=== PATIENT | male | born 1985 | race Caucasian/White ===

== ENCOUNTER 2016-10-11 22:23 | Emergency (ER) | payer BC ==
[2016-10-11] MEDS ORDERED: SULFAMETHOXAZOLE/TRIMETHOPRIM 800MG/160MG D.S. TABLET PO ONE (22:36)
--- NOTE | 2016-10-11 22:36 | PDOC ---
[id number] 4d RIGHT ELBOW PAIN Time Seen by Provider: 10/11/16 22:32 History Source: Patient Exam Limitations: No Limitations - History of Present Illness Initial Comments: 10/11/16 23:20 This is a 31-year-old male comes in complaining of right elbow pain 1 day. Patient denies any fever, chills, trauma or injury. Patient denies any frequent use of the elbow. Patient says he does sit at a desk at a computer and leans his elbow on the chair a fair amount. Patient otherwise is healthy and denies similar symptoms in the past. PAST MEDICAL HISTORY: no significant history PAST SURGICAL HISTORY: no significant history FAMILY HISTORY: no pertinant history SOCIAL HISTORY: Pt lives with family and is employed. MEDICATIONS: reviewed ALLERGIES: As per nursing notes Review of Systems General: No fevers or chills, no weakness, no weight loss HEENT: No change in vision. No sore throat,. No ear pain CardioVascular: No chest pain or shortness of breath Respiratory:No cough, or wheezing. Gastrointestinal: no nausea, vomitting, diarrhea or constipation, No rectal bleeding Genitourinary: No dysuria, hematuria, or frequency Musculoskeletal: Right elbow pain and swelling Neurologic: No headache, vertigo, dizziness or loss of consciousness Psychiatric: nor depression Skin: No rashes or easy bruising Endocrine: no increased thirst or abnormal weight change Allergic: no skin or latex allergy All other systems reviewed and normal GENERAL: The patient is awake, alert, and fully oriented, in no acute distress. HEAD: Normal with no signs of trauma. EYES: Pupils equal, round and reactive to light, extraocular movements intact, sclera anicteric, conjunctiva clear. EXTREMITIES: Right elbow there is a small collection over the olecranon with some mild erythema and slight increase in warmth. There does appear to be an abrasion over the area as well. There is full range of motion at the elbow with minimal discomfort. Neurovascular distal is intact. NEUROLOGICAL: Normal speech, normal gait. PSYCH: Normal mood, normal affect. SKIN: Warm, Dry, normal turgor, no rashes or lesions noted. This is a 31-year-old male who comes in with an right olecranon bursitis. It is uncertain as to whether or not there is also an overlying mild cellulitis. Patient started on Bactrim to cover for MRSA as well as other skin floor and given a follow-up with Dr. Arshad. Past History - Past Medical History Allergies/Adverse Reactions: Allergies Allergy/AdvReac Type Severity Reaction Status Date / Time Penicillins Allergy Verified 10/11/16 22:36 shellfish derived Allergy Verified 10/11/16 22:36 Home Medications: Ambulatory Orders Sulfamethoxazole/Trimethoprim [Bactrim DS -] 1 tab PO BID #14 tablet 10/11/16 *DC/Admit/Observation/Transfer Diagnosis at time of Disposition: Olecranon bursitis, right elbow - Discharge Dispostion Disposition: HOME Condition at time of disposition: Stable - Prescriptions Prescriptions: Sulfamethoxazole/Trimethoprim [Bactrim DS -] 1 tab PO BID #14 tablet - Patient Instructions Printed Discharge Instructions: Bursitis Additional Instructions: For the pain take ibuprofen 600 mg 3 times a day with food don't take on an empty stomach.. Take Bactrim 1 tablet twice a day for 7 days. Follow-up with an orthopedist if you need an orthopedist call Dr. Arshad at [phone] in the morning for an appointment. Return to the emergency department immediately with ANY new, persistent or worsening symptoms. Continue any medications as previously prescribed by your physician. You should follow up with your primary doctor as soon as possible regarding today's emergency department visit. . Please make sure your doctor reviews the results of your emergency evaluation. Thank you for coming to the Emergency Department today for your care. It was a pleasure to see you today. Please note that your evaluation is INCOMPLETE until you follow-up with your doctor.
[2016-10-11] MEDS ORDERED: IBUPROFEN 600 MG TABLET (FP) PO ONE ×2 (22:39→22:43)
[2016-10-11 22:41] VITALS: BP 119/81; PULSE 60; TEMP 98.1; BMI 24.3
== END 2016-10-11 22:45 | disposition home or self-care (01) ==
LOC: FER 22:23
DX: M70.21 Olecranon bursitis, right elbow (principal)
CPT/HCPCS: 99281-25

== ENCOUNTER 2016-10-14 09:36 | Inpatient (IN) | payer BC ==
--- NOTE | 2016-10-14 09:45 | PDOC ---
History of Present Illness - General Chief Complaint: Wound Stated Complaint: RIGHT ELBOW CELLULITIS Time Seen by Provider: 10/14/16 09:40 History Source: Patient (Patient, second visit to this ER for same was brought in by Dr Arshad for spreading of his redness over the right elbow. Patient was treated as outpatient with Bactrim DS without improvement) Exam Limitations: No Limitations - History of Present Illness Severity: moderate Past History - Travel Traveled outside of the country in the last 30 days: No Close contact w/someone who was outside of country & ill: No - Past Medical History Allergies/Adverse Reactions: Allergies Allergy/AdvReac Type Severity Reaction Status Date / Time Penicillins Allergy Verified 10/14/16 09:38 shellfish derived Allergy Verified 10/14/16 09:38 Home Medications: Ambulatory Orders Sulfamethoxazole/Trimethoprim [Bactrim DS -] 1 tab PO BID #14 tablet 10/11/16 - Psycho/Social/Smoking Cessation Hx Anxiety: No Suicidal Ideation: No Smoking History: Never smoked Have you smoked in the past 12 months: No Hx Alcohol Use: No Drug/Substance Use Hx: No Substance Use Type: None Review of Systems - Review of Systems Able to Perform ROS?: Yes Is the patient limited Maltese proficient: Yes Constitutional: Yes: Symptoms Reported, Fever, Malaise HEENTM: Yes: Symptoms Reported, See HPI Respiratory: No: Symptoms reported, See HPI, Cough, Orthopnea, Shortness of Breath, SOB with Exertion, SOB at Rest, Stridor, Wheezing, Productive cough, Hemoptysis, Other Cardiac (ROS): No: Symptoms Reported, See HPI, Chest Pain, Edema, Irregular Heart Rate, Lightheadedness, Palpitations, Syncope, Chest Tightness, Other ABD/GI: Yes: Nausea Musculoskeletal: Yes: Symptoms Reported, See HPI Integumentary: Yes: Symptoms Reported, See HPI, Erythema, Flushing, Rash Neurological: No: Symptoms reported, See HPI, Headache, Numbness, Paresthesia, Pre-Existing Deficit, Seizure, Tingling, Tremors, Weakness, Unsteady Gait, Ataxia, Dizziness, Other Psychiatric: No: Anxiety, Depression, Frequent Crying, Stressors, Sleep Pattern Change, Emotional Problems, Mood Swings, Change in Appetite, Other Endocrine: No: Symptoms Reported, See HPI, Excessive Sweating, Flushing, Intolerance to Cold, Intolerance to Heat, Increased Hunger, Increased Thirst, Increased Urine, Unexplained Weight Gain, Unexplained Weight Loss, Change in Weight, Other All Other Systems: Reviewed and Negative *Physical Exam - Physical Exam General Appearance: Yes: Nourished, Appropriately Dressed, Moderate Distress, Thin HEENT: positive: Normal ENT Inspection Neck: positive: Supple Respiratory/Chest: positive: Lungs Clear, Normal Breath Sounds Cardiovascular: positive: Regular Rate Extremity: positive: Normal Capillary Refill Integumentary: positive: Normal Color, Dry, Erythema 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 Blood work done, iv started .Antibiotics as ordered gera timely fashion Patint to be admitted as an inpatient, iv atbc ordered 10/14/16 17:55 *DC/Admit/Observation/Transfer Diagnosis at time of Disposition: Cellulitis Qualifiers: Site of cellulitis: extremity Site of cellulitis of extremity: upper extremity Laterality: right Qualified Code(s): L03.113 - Cellulitis of right upper limb - Discharge Dispostion Condition at time of disposition: Stable Admit: Yes
[2016-10-14 09:51] VITALS: BMI 24.3
[2016-10-14] MEDS ORDERED: OXYCODONE/APAP 5/325MG COMBO TABLET ONE (10:07)
[2016-10-14] MEDS ORDERED: OXYCODONE/APAP 5/325MG COMBO TABLET PO ONE (10:26)
[2016-10-14 10:31] LABS: INR 1.17 (0.82-1.09); PROTHROMBIN TIME (PATIENT) 12.8 SEC (10.2-13.0)
[2016-10-14 10:36] LABS: ALBUMIN 4.7 g/dl (3.5-5.0); ALK PHOS 51 U/L (32-92); ANION GAP 9 (8-16); BILIRUBIN,TOTAL 0.8 mg/dl (0.2-1.0); CALCIUM 9.4 mg/dl (8.4-10.2); CO2 25 mmol/L (22-28); CREATININE 0.9 mg/dl (0.6-1.3); GLUCOSE,RANDOM 93 mg/dl (74-106); SGOT/AST 23 U/L (10-42); SGPT/ALT 28 U/L (10-40); TOT PROT 7.7 g/dl (6.4-8.3)
[2016-10-14 11:06] LABS: BASOPHIL 0.3 % (0-2.0); EOSINOPHIL 1.4 % (0-4.5); MCH 29.5 pg (25.7-33.7); MCHC 32.8 g/dl (32.0-35.9); MEAN CELL VOLUME 89.9 fl (80-96); MEAN PLT VOLUME 9.6 fl (7.5-11.1); NEUTROPHILS 67.7 % (42.8-82.8); PLATELET COUNT 238 K/MM3 (134-434); RDW 12.4 % (11.9-15.9); WHITE BLOOD COUNT 9.7 K/mm3 (4.0-10.0)
--- NOTE | 2016-10-14 11:08 | PN ---
Progress Note (short form) - Note Progress Note: ID Consult dictated Cellulitis R elbow Possible infected R olecrannon bursa PCN allergy Await blood c/s Empiric vancomycin 1gm IVPB Q12h Elevation, warm soaks, analgesics
[2016-10-14] MEDS ORDERED: VANCOMYCIN 1,000 MG VIAL (RESTRICTED TO ID ONLY) ONE (11:18)
[2016-10-14] MEDS: VANCOMYCIN 1 GRAM (PRE-DOCKED) 250 ML IVPB SCH ×2 (11:28→23:00)
--- NOTE | 2016-10-14 11:51 | CONS ---
DATE OF CONSULTATION: HISTORY: The patient is a 31-year-old male who was evaluated for cellulitis of the right elbow. He had presented to the emergency room on October 11, 2015 with a 1-day history of right elbow pain. He was found to have erythema involving the elbow area. He was discharged home to complete a course of oral Bactrim. Despite taking the Bactrim as prescribed, he developed worsening erythema, warmth, and swelling of the right elbow area. He returned to the emergency room where he is now being admitted. He denies any traumatic injury to the right elbow. No insect or animal bites or scratches. He denies any associated fever or chills. No prior history of serious soft tissue infection requiring hospitalization or history of MRSA. PAST MEDICAL HISTORY: Negative. ALLERGIES: PENICILLIN and SHELLFISH. The patient is unaware of the nature of the PENICILLIN allergy. He was told as a child he was allergic to PENICILLIN and no documented history of anaphylaxis. MEDICATIONS: Include oxycodone for pain and Bactrim. 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 No direct patient contact. Nonsmoker, nondrinker. Had recently relocated from [facility]. REVIEW OF SYSTEMS: Neurologic: No loss of consciousness, seizure activity, focal weakness. Cardiac: Negative chest pain or palpitations. Respiratory: Negative cough or sputum production. Gastrointestinal: Negative vomiting or diarrhea. Genitourinary: Negative for urinary tract infection. LABORATORY DATA: CBC pending. BUN 14, creatinine 0.9. Blood cultures are pending. PHYSICAL EXAMINATION: General: He is awake and alert in no acute distress. Vital Signs: Temperature 97.8, blood pressure 117/76, pulse 66, regular, respirations 18 per minute. HEENT: Sclerae anicteric. Heart: Sound S1, S2. No murmur. Lungs: Clear. No rales, rhonchi, or wheezing. Abdomen: Soft. No tenderness elicited. No mass, rebound, or rigidity. Extremities: Negative for pedal edema. Examination of the right elbow, there is an area of erythema involving the elbow area, which extends several cm proximally and distally. It is limited to the extensor aspect of the right upper extremity. There is slight swelling over the olecranon bursa and tenderness. There is no fluctuance. IMPRESSION: 1. Cellulitis of the right elbow. 2. Possible infected right olecranon bursa. 3. PENICILLIN allergy. PLAN: Await blood culture results. Empiric antibiotic coverage in this PENICILLIN-allergic patient with vancomycin 1 g IV piggyback every 12 hours. Warm soaks. Elevation. Analgesics as needed. Orthopaedic follow up. We will follow. Thank you for the kind referral. LUC LEHMAN M.D. JUNIOR/[id number]
--- NOTE | 2016-10-14 12:36 | HP ---
CHIEF COMPLAINT: pain to right elbow PCP: none HISTORY OF PRESENT ILLNESS: patient is a 31-year-old male, with a past medical history of childhood Lyme disease. patient was evaluated in this emergency department on 10/11/2016 for pain and redness to the right elbow. He was diagnosed with bursitis/cellulitis and started on Bactrim. Patient reports compliance with prescribed antibiotic. However patient reports the swelling and redness worsened and extended past the markings that were placed in the emergency department. He sought evaluation with the orthopedist, Dr Arshad and was referred to the emergency department for further management. 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 Alcohol:none Drugs: none Family History: mother NIDDM alive and well father, alive and well no medical history Allergies Penicillins Allergy (Verified 10/14/16 09:38) shellfish derived Allergy (Verified 10/14/16 09:38) HOME MEDICATIONS: Medication Instructions Recorded Sulfamethoxazole/Trimethoprim 1 tab PO BID #14 tablet 10/11/16 [Bactrim DS -] REVIEW OF SYSTEMS CONSTITUTIONAL: Absent: fever, chills, diaphoresis, generalized weakness, malaise, loss of appetite, weight change HEENT: Absent: rhinorrhea, nasal congestion, throat pain, throat swelling, difficulty swallowing, mouth swelling, ear pain, eye pain, visual changes CARDIOVASCULAR: Absent: chest pain, syncope, palpitations, irregular heart rate, lightheadedness , peripheral edema RESPIRATORY: Absent: cough, shortness of breath, dyspnea with exertion, orthopnea, wheezing, stridor, hemoptysis GASTROINTESTINAL: Absent: abdominal pain, abdominal distension, nausea, vomiting, diarrhea, constipation, melena, hematochezia GENITOURINARY: Absent: dysuria, frequency, urgency, hesitancy, hematuria, flank pain, genital pain MUSCULOSKELETAL: present: right elbow paiin Absent: myalgia, arthralgia, joint swelling, back pain, neck pain SKIN: Absent: rash, itching, pallor HEMATOLOGIC/IMMUNOLOGIC: Absent: easy bleeding, easy bruising, lymphadenopathy, frequent infections ENDOCRINE: Absent: unexplained weight gain, unexplained weight loss, heat intolerance, cold intolerance NEUROLOGIC: Absent: headache, focal weakness or paresthesias, dizziness, unsteady gait, seizure, mental status changes, bladder or bowel incontinence PSYCHIATRIC: Absent: anxiety, depression, suicidal or homicidal ideation, hallucinations. PHYSICAL EXAMINATION GENERAL: Awake, alert, and fully oriented, in no acute distress. HEAD: Normal with no signs of trauma. EYES: Pupils equal, round and reactive to light, extraocular movements intact, sclera anicteric, conjunctiva clear. No lid lag. EARS, NOSE, THROAT: Ears normal, nares patent, oropharynx clear without exudates. Moist mucous membranes. NECK: Normal range of motion, supple without lymphadenopathy, JVD, or masses. LUNGS: Breath sounds equal, clear to auscultation bilaterally. No wheezes, and no crackles. No accessory muscle use. HEART: Regular rate and rhythm, normal S1 and S2 without murmur, rub or gallop. ABDOMEN: Soft, nontender, not distended, normoactive bowel sounds, no guarding, no rebound, no masses. No hepatomegaly or splenomegaly. MUSCULOSKELETAL: Normal range of motion at all joints. No bony deformities or tenderness. No CVA tenderness. UPPER EXTREMITIES: 2+ pulses, warm, well-perfused. No cyanosis. No clubbing. Cap refill <2 seconds. No peripheral edema RIGHT ELBOW: erythema noted to the olecranon process 6 x6 cm no induration or fluctuance noted tender to touch, markings noted, 1 cm of erythema extending past the markings LOWER EXTREMITIES: 2+ pulses, warm, well-perfused. No calf tenderness. No peripheral edema. NEUROLOGICAL: Cranial nerves II-XII intact. Normal speech. Normal gait. PSYCHIATRIC: Cooperative. Good eye contact. Appropriate mood and affect. SKIN: Warm, dry, normal turgor, no rashes or lesions noted. ASSESSMENT/PLAN: 1) ID: cellulitis, failed outpatient therapy - agree with ID continue vancomycin - Follow-up blood cultures - Monitor CBC and fever curve - CT scan of right upper extremity R/o abscess - PMH of Lyme's disease the past Lyme's titer ordered, uric acid ordered - appreciate ortho input - iD consulted and following F/E/N - Regular diet - PT lites when necessary ppx - oob - zantac dispo: require inpatient admission Problem List - Problem (1) Cellulitis Code(s): L03.90 - CELLULITIS, UNSPECIFIED Qualifiers: Site of cellulitis: extremity Site of cellulitis of extremity: upper extremity Laterality: right Qualified Code(s): L03.113 - Cellulitis of right upper limb Visit type - Emergency Visit Emergency Visit: Yes ED Registration Date: 10/14/16 Care time: The patient presented to the Emergency Department on the above date and was hospitalized for further evaluation of their emergent condition. - New Patient This patient is new to me today: Yes Date on this admission: 10/14/16 - Critical Care Critical Care patient: No
[2016-10-14] MEDS ORDERED: ZOLPIDEM TARTRATE 5 MG TABLET PO PRN (13:18)
[2016-10-14] MEDS ORDERED: ACETAMINOPHEN 325 MG TABLET (FP) PO PRN (13:18)
--- NOTE | 2016-10-14 13:18 | CONSULT ---
Consult - text type - Consultation Consultation Note: Orthopedic Consult Note: S: Patient is a 31-year-old male presented to our office today with a 4-5 day history of right elbow pain and swelling. He denies any acute injury/accident or trauma to the elbow. Patient was evaluated in emergency department on 2016 for pain and redness to the right elbow. Diagnosed with bursitis/ cellulitis and started on Bactrim; he relates being compliant with this medication since the discharge. The patient reports the swelling and redness worsened and extended past the markings that were placed in the emergency department. He does have a past medical history of childhood Lyme disease. Radiographs in our office reveal no acute fracture, dislocation or pathologic bone. O: CBC, BMP 10/14/16 10:06 10/14/16 10:00 Vital Signs Period Temp Pulse Resp BP Sys/Mcneil Pulse Ox Last 24 Hr 97.8 F 66 18 117/79 99 GEN: Patient seated in office, HERZOG/NAD/VSS/Afebrile, color good well appearing answering all questions appropriately. R UE: Elbow with decreased range of motion due to edema pain, large area of erythema with warmth. Area of cellulitis is approximately 6x6 cm, line of demarcation traced. Minor superficial abrasion noted over olecranon process, slight boggy effusion appreciated. No active open wound noted, no drainage. 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 Neurovascularly intact distally. A/P: 31M right elbow cellulitis, possible infected bursitis. No orthopedic surgical intervention required at this time. 1. Admit to hospitalist for further evaluation and treatment 2. Pain Control 3. ID consult; Abx per ID, await culture results 4. Appreciate hospitalist consult, CT scan of elbow negative for collection 5. Elevate right elbow at all times, monitor area of cellulitis 6. Will continue to follow
[2016-10-14] MEDS: OXYCODONE/APAP 5/325MG COMBO TABLET PO PRN (20:11)
[2016-10-14] MEDS ORDERED: diphenhydrAMINE HCL 25 MG CAPSULE (FP) PO ONE (22:03)
--- NOTE | 2016-10-15 09:23 | PN ---
Progress Note, Physician History of Present Illness: Reports less R elbow pain/swelling Afebrile Tolerating antibiotic CT R UE no abscess - Current Medication List Current Medications: Active Medications Acetaminophen (Tylenol -) 650 mg PO Q4H PRN PRN Reason: FEVER OR PAIN Vancomycin HCl (Vancomycin (Pre-Docked)) 250 mls @ 166.667 mls/hr IVPB Q12H CRISTY Last Admin: 10/14/16 23:00 Dose: 166.667 mls/hr Oxycodone/Acetaminophen (Percocet 5/325 -) 1 combo PO Q4H PRN PRN Reason: PAIN LEVEL 6-10 Last Admin: 10/14/16 20:11 Dose: 1 combo Ranitidine HCl (Zantac -) 150 mg PO DAILY CRISTY Zolpidem Tartrate (Ambien -) 5 mg PO HS PRN PRN Reason: INSOMNIA - Objective Vital Signs: Vital Signs Temperature 97.7 F 10/15/16 09:07 Pulse Rate 69 10/15/16 09:07 Respiratory Rate 18 10/15/16 09:07 Blood Pressure 110/44 10/15/16 09:07 O2 Sat by Pulse Oximetry (%) 100 10/15/16 09:00 Constitutional: Yes: No Distress Eyes: Yes: Conjunctiva Clear Cardiovascular: Yes: Regular Rate and Rhythm, S1, S2 Respiratory: Yes: CTA Bilaterally Gastrointestinal: Yes: Normal Bowel Sounds, Soft. No: Tenderness Extremities: Yes: Other (decreased R elbow erythema/ swelling no fluctuance at olecrannon process) Labs: INR, PTT INR 1.17 (0.82-1.09) 10/14/16 10:00 Assessment/Plan Cellulitis R elbow Possible infected olecrannon bursa PCN allergy Continue IV Vancomycin x 24h, then substitute clindamcin 300mg po tid for additional 3d
[2016-10-15] MEDS: RANITIDINE HCL 150 MG TABLET (FP) PO SCH (09:37)
[2016-10-15] MEDS: OXYCODONE/APAP 5/325MG COMBO TABLET PO PRN (09:40)
--- NOTE | 2016-10-15 10:08 | PN ---
[id number] extension of the arm denies any tactile fever. OBJECTIVE:patient is a 31-year-old male, with a past medical history of childhood Lyme disease. he was admitted from the emergency department for cellulitis of the right elbow after failing outpatient therapy Vital Signs Period Temp Pulse Resp BP Sys/Mcneil Pulse Ox Last 24 Hr 97.7 F-98.4 F 53-69 17-20 110-119/44-60 98-100 GENERAL: The patient is awake, alert, and fully oriented, in no acute distress. HEAD: Normal with no signs of trauma. EYES: PERRL, extraocular movements intact, sclera anicteric, conjunctiva clear. No ptosis. ENT: Ears normal, nares patent, oropharynx clear without exudates, moist mucous membranes. NECK: Trachea midline, full range of motion, supple. LUNGS: Breath sounds equal, clear to auscultation bilaterally, no wheezes, no crackles, no accessory muscle use. HEART: Regular rate and rhythm, S1, S2 without murmur, rub or gallop. ABDOMEN: Soft, nontender, nondistended, normoactive bowel sounds, no guarding, no rebound, no hepatosplenomegaly, no masses. EXTREMITIES: 2+ pulses, warm, well-perfused, no edema. RIGHT ARM: 6 x 6 cm of right elbow not extending past markings, pain with flexion and extension of the right elbow consistent 3 second capillary refill + 3 radial pulse, no fluctuance noted NEUROLOGICAL: Cranial nerves II through XII grossly intact. Normal speech, gait not observed. PSYCH: Normal mood, normal affect. SKIN: Warm, dry, normal turgor, no rashes or lesions noted Laboratory Results - last 24 hr 10/14/16 Unknown Uric Acid 4.4 Active Medications Generic Name Dose Route Start Last Admin Trade Name Freq PRN Reason Stop Dose Admin Acetaminophen 650 mg 10/14/16 13:18 Tylenol - PO Q4H PRN FEVER OR PAIN Vancomycin HCl 250 mls @ 166.667 mls/hr 10/14/16 11:30 10/14/16 23:00 Vancomycin (Pre-Docked) IVPB 166.667 mls/hr Q12H CRISTY Administration Oxycodone/Acetaminophen 1 combo 10/14/16 13:19 10/15/16 09:40 Percocet 5/325 - PO 1 combo Q4H PRN Administration PAIN LEVEL 6-10 Ranitidine HCl 150 mg 10/15/16 10:00 10/15/16 09:37 Zantac - PO 150 mg DAILY CRISTY Administration Zolpidem Tartrate 5 mg 10/14/16 13:18 Ambien - PO HS PRN INSOMNIA Microbiology 10/14/16 10:10 Blood - Peripheral Venous Blood Culture - Preliminary NO GROWTH OBTAINED AFTER 24 HOURS, INCUBATION TO CONTINUE FOR 4 DAYS. 10/14/16 10:00 Blood - Peripheral Venous Blood Culture - Preliminary NO GROWTH OBTAINED AFTER 24 HOURS, INCUBATION TO CONTINUE FOR 4 DAYS. imaging X-ray of right elbow soft tissue swelling, no fracture no foreign body CT scan of right upper extremity, no abscess formation, fluid and inflammatory changes noted to the posterior elbow joint ASSESSMENT/PLAN: 1) ID: cellulitis, failed outpatient therapy - continue vancomycin 24 hours then transition to clindamycin - blood cultures ntd - pending Lyme's titers - orthopedist consulted and following - iD consulted and following F/E/N - Regular diet - repletes lytes when necessary ppx - oob - zantac dispo: require inpatient admission, requires 24 hours of IV antibiotic discharge tomorrow on clindamycin Problem List - Problems (1) Cellulitis Code(s): L03.90 - CELLULITIS, UNSPECIFIED Qualifiers: Site of cellulitis: extremity Site of cellulitis of extremity: upper extremity Laterality: right Qualified Code(s): L03.113 - Cellulitis of right upper limb Visit type - Emergency Visit Emergency Visit: Yes ED Registration Date: 10/14/16 Care time: The patient presented to the Emergency Department on the above date and was hospitalized for further evaluation of their emergent condition. - New Patient This patient is new to me today: No - Critical Care Critical Care patient: No - Discharge Referral Referred to [facility] No
[2016-10-15] MEDS ORDERED: traMADol HCL 50 MG TABLET PO PRN (10:18)
[2016-10-15] MEDS: VANCOMYCIN 1 GRAM (PRE-DOCKED) 250 ML IVPB SCH ×2 (10:58→23:22)
--- NOTE | 2016-10-15 12:11 | EKG ---
Test Reason : Blood Pressure : / mmHG Vent. Rate : 052 BPM Atrial Rate : 052 BPM P-R Int : 158 ms QRS Dur : 104 ms QT Int : 394 ms P-R-T Axes : 029 041 024 degrees QTc Int : 366 ms SINUS BRADYCARDIA OTHERWISE NORMAL ECG NO PREVIOUS ECGS AVAILABLE Confirmed by KODAK JIMENEZ MD ([id number]) on 10/15/2016 12:11:07 PM Referred By: NAZARIO PIKE Confirmed By:KODAK JIMENEZ MD
[2016-10-15 12:15] LABS: BASOPHIL 0.7 % (0-2.0); EOSINOPHIL 2.6 % (0-4.5); MCH 29.7 pg (25.7-33.7); MEAN CELL VOLUME 90.1 fl (80-96); MEAN PLT VOLUME 8.8 fl (7.5-11.1); NEUTROPHILS 68.4 % (42.8-82.8); PLATELET COUNT 228 K/MM3 (134-434); RDW 12.3 % (11.9-15.9); WHITE BLOOD COUNT 8.4 K/mm3 (4.0-10.0)
[2016-10-15 12:29] LABS: CALCIUM 8.7 mg/dl (8.4-10.2); CREATININE 0.8 mg/dl (0.6-1.3); MAGNESIUM 2.1 mg/dL (1.8-2.4)
--- NOTE | 2016-10-15 13:52 | PN ---
Progress Note, Physician History of Present Illness: He feels well. The elbow is feeling much better since yesterday. No new complaints. - Current Medication List Current Medications: Active Medications Acetaminophen (Tylenol -) 650 mg PO Q4H PRN PRN Reason: FEVER OR PAIN Vancomycin HCl (Vancomycin (Pre-Docked)) 250 mls @ 166.667 mls/hr IVPB Q12H COUNT INCLUDES THE [facility] Last Admin: 10/15/16 10:58 Dose: 166.667 mls/hr Ranitidine HCl (Zantac -) 150 mg PO DAILY COUNT INCLUDES THE [facility] Last Admin: 10/15/16 09:37 Dose: 150 mg Tramadol HCl (Ultram -) 50 mg PO Q6H PRN PRN Reason: PAIN Zolpidem Tartrate (Ambien -) 5 mg PO HS PRN PRN Reason: INSOMNIA - Objective Vital Signs: Vital Signs Temperature 97.7 F 10/15/16 09:07 Pulse Rate 69 10/15/16 09:07 Respiratory Rate 18 10/15/16 09:07 Blood Pressure 110/44 10/15/16 09:07 O2 Sat by Pulse Oximetry (%) 100 10/15/16 09:00 Constitutional: Yes: Well Nourished, No Distress, Calm Extremities: Yes: Other (Right elbow: Mild erythmia and swelling posterioly at the elbow. Mild warmth in this area. No fluctuance. No palpable abscess. Mild tenderness over the olecronon and surrounding soft tissue. No drainage. NVID. Full ROM of elbow.) Labs: CBC, BMP 10/15/16 12:00 10/15/16 12:00 INR, PTT INR 1.17 (0.82-1.09) 10/14/16 10:00 Assessment/Plan #1 Right elbow cellulitis -No drainage indicated at this time -ABX appear to be working - Pain control -Elevation
[2016-10-15] MEDS ORDERED: diphenhydrAMINE HCL 25 MG CAPSULE (FP) PO PRN (14:17)
[2016-10-16 06:27] VITALS: BP 102/51; PULSE 50; TEMP 98.6
--- NOTE | 2016-10-16 09:38 | DS ---
Physical Exam: SUBJECTIVE: Patient seen and examined. states he has pinpoint tenderness in the elbow which also limits his ability to move the elbow but is improved since admission. denies Cp, SOb,fever, chills, N/v/C/D OBJECTIVE: Vital Signs Period Temp Pulse Resp BP Sys/Mcneil Pulse Ox Last 24 Hr 97.5 F-98.6 F 50-68 16-18 102-124/51-76 94-98 PHYSICAL EXAM GENERAL: The patient is awake, alert, and fully oriented, in no acute distress. HEAD: Normal with no signs of trauma. EYES: PERRL, extraocular movements intact, sclera anicteric, conjunctiva clear. ENT: Ears normal, nares patent, oropharynx clear without exudates, moist mucous membranes. NECK: Trachea midline, full range of motion, supple. LUNGS: Breath sounds equal, clear to auscultation bilaterally, no wheezes, no crackles, no accessory muscle use. HEART: Regular rate and rhythm, S1, S2 without murmur, rub or gallop. ABDOMEN: Soft, nontender, nondistended, normoactive bowel sounds, no guarding, no rebound, no hepatosplenomegaly, no masses. EXTREMITIES: 2+ pulses, warm, well-perfused, no edema. R elbow with mild erythema over the extensor surface, pin point tenderness at the elbow. some pain on active motion of full extension of the elbow, no pain on supination/ pronation. no joint effusion appreciated. NEUROLOGICAL: Cranial nerves II through XII grossly intact. Normal speech, gait not observed. PSYCH: Normal mood, normal affect. SKIN: Warm, dry, normal turgor, no rashes or lesions noted. LABS Laboratory Results - last 24 hr 10/15/16 10/15/16 12:00 12:00 WBC 8.4 RBC 4.69 Hgb 13.9 Hct 42.3 MCV 90.1 MCHC 33.0 RDW 12.3 Plt Count 228 MPV 8.8 Neutrophils % 68.4 Lymphocytes % 20.6 Monocytes % 7.7 Eosinophils % 2.6 D Basophils % 0.7 Sodium 134 L Potassium 4.3 Chloride 104 Carbon Dioxide 24 Anion Gap 6 L BUN 11 D Creatinine 0.8 Random Glucose 87 Calcium 8.7 Magnesium 2.1 HOSPITAL COURSE: Date of Admission:10/14/16 Date of Discharge: 10/16/16 Admitting diagnosis: R olenecron cellulitis, R bursitis Pre hospital course 31-year-old male, with a past medical history of childhood Lyme disease. patient was evaluated in this emergency department on 10/11/2016 for pain and redness to the right elbow. He was diagnosed with bursitis/cellulitis and started on Bactrim. Patient reports compliance with prescribed antibiotic. However patient reports the swelling and redness worsened and extended past the markings that were placed in the emergency department. He sought evaluation with the orthopedist, Dr Arshad and was referred to the emergency department for further management. Subsequent hospital course Admitted to medicine. started on Vanco IV. imaging studies down showing only soft tissue swelling. evaluated by ortho and ID. clinically improved. Cx reported as negative. pain controlled. d/c home on additional 3 days of clindamycin. educated on importance of medication compliance and follow up with PMD. information on one has been provided. Minutes to complete discharge: 40 Discharge Summary Reason For Visit: CELLULITIS Current Active Problems Cellulitis (Acute) Condition: Improved - Instructions Diet, Activity, Other Instructions: Take antibiotic starting tomorrow. take until completed even if your symptoms resolve Antibiotics can cause diarrhea, you can take Bacid to prevent diarrhea. Take tylenol as needed. for severe pain may take tramadol as needed Follow up with primary care doctor this week. information on one in the area has been provided if you develop fever (temp >101) return to the ER Referrals: Kadie Tran MD [Staff Physician] - Disposition: HOME - Home Medications Comprehensive Discharge Medication List: Ambulatory Orders Acetaminophen [Tylenol .Regular Strength -] 650 mg PO Q4H PRN #0 tablet Clindamycin HCl 300 mg PO Q8H #9 capsule 10/16/16 Lactobacillus Acidophilus [Bacid -] 1 tab PO DAILY #30 tab 10/16/16 Tramadol HCl [Ultram -] 50 mg PO Q6H PRN #8 tablet MDD 300 10/16/16 This patient is new to me today: Yes Date on this admission: 10/16/16 Emergency Visit: Yes ED Registration Date: 10/14/16 Care time: The patient presented to the Emergency Department on the above date and was hospitalized for further evaluation of their emergent condition. Critical Care patient: No - Discharge Referral Referred to [facility] Med P.C.: No
[2016-10-16] MEDS ORDERED: LACTOBACILLUS ACIDOPHILUS 1 EACH TAB (FP) PO SCH (10:00)
[2016-10-16] MEDS: RANITIDINE HCL 150 MG TABLET (FP) PO SCH (10:04)
[2016-10-16] MEDS: VANCOMYCIN 1 GRAM (PRE-DOCKED) 250 ML IVPB SCH (11:04)
== END 2016-10-16 12:30 | disposition home or self-care (01) | DRG 603 ==
LOC: FER 09:36 → FM/S 12:21
PROVIDERS: ADMIT Internal Medicine; ATTEND Nurse Practitioner Family
DX: L03.113 Cellulitis of right upper limb (principal); Z88.0 Allergy status to penicillin
CPT/HCPCS: 36415; 73070-TC-RT; 73200-TC-RT; 80048; 80053; 83605; 83735; 84550; 85025; 85610; 85651; 86140; 86618; 87040; 93005; 99283-25